=== PATIENT | male | born 2005 | race African-American/Black ===

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

== ENCOUNTER 2024-02-01 16:51 | Emergency (ER) | payer OTHER ==
[2024-02-01 16:58] VITALS: RESP 18; TEMP 98.5; BMI 27.6
[2024-02-01] MEDS ORDERED: BENZOIN/ALOE VERA/STORAX/TOLU 58 ML BOTTLE ONE (18:41)
[2024-02-01] MEDS ORDERED: ONDANSETRON 4 MG/2 ML VIAL ONE (18:45)
[2024-02-01] MEDS: ONDANSETRON 4 MG/2 ML VIAL IVPUSH ONE (18:50)
[2024-02-01] MEDS: SODIUM CHLORIDE 0.9% 500 ML INFUS.BAG IV ONE ×2 (18:50→20:16)
[2024-02-01 18:55] LABS: BASO % 0.1 % (0-2.0); EOS % 0.4 % (0-4.5); HEMATOCRIT 47.2 % (35.4-49); HEMOGLOBIN 15.9 GM/dL (11.7-16.9); LYMPH % 3.2 % (8-40); MCH 28.6 pg (25.7-33.7); MCHC 33.6 g/dl (32.0-35.9); MEAN CELL VOLUME 85.2 fl (80-96); MEAN PLT VOLUME 8.9 fl (7.5-11.1); MONO % 5.3 % (3.8-10.2); PLATELET COUNT 221 10^3/uL (134-434); RBC 5.54 M/mm3 (4.00-5.60); RDW 13.6 % (11.9-15.9); WHITE BLOOD COUNT 5.9 K/mm3 (4.0-10.0)
[2024-02-01 19:21] LABS: POTASSIUM 5.7 mmol/L (3.5-5.1)
[2024-02-01 19:23] LABS: CALCIUM 9.2 mg/dL (8.5-10.1)
[2024-02-01 19:24] LABS: ALBUMIN 3.9 g/dl (3.4-5.0); BLOOD UREA NITROGEN 24.6 mg/dL (7-18)
[2024-02-01 19:28] LABS: BILIRUBIN,TOTAL 0.9 mg/dL (0.2-1); TOT PROT 8.1 g/dl (6.4-8.2)
[2024-02-01 21:46] LABS: POTASSIUM 4.3 mmol/L (3.5-5.1)
[2024-02-01 21:47] LABS: CALCIUM 8.8 mg/dL (8.5-10.1)
[2024-02-01 21:48] LABS: BLOOD UREA NITROGEN 22.8 mg/dL (7-18)
[2024-02-01 21:54] LABS: CREATININE 0.8 mg/dL (0.55-1.3)
[2024-02-01 22:04] VITALS: BP 120/68; PULSE 76
== END 2024-02-01 22:04 | disposition home or self-care (01) ==
LOC: JER 16:51
PROC: 3E030GC Introduction of Other Therapeutic Substance into Peripheral Vein, Open Approach (ICD-10-PCS; principal; 2024-02-01)
DX: K52.9 Noninfective gastroenteritis and colitis, unspecified (principal)
CPT/HCPCS: 36415; 80048; 80053; 85025; 99284-25